=== PATIENT | female | born 1985 | race American Indian/Alaskan Native ===

== ENCOUNTER 2017-11-21 22:36 | Emergency (ER) | payer SELFPAY ==
[2017-11-21 22:45] VITALS: BP 140/90; PULSE 68; RESP 18; TEMP 98.6; O2SAT 99
--- NOTE | 2017-11-21 23:58 | C.PDOC ---
History Of Present Illness 32 year old female presents to the ER with a complaint of left upper tooth pain for the past 4 days. Patient states the pain radiates to her neck and ear. She has been taking tylenol twice a day with no relief. Denies fever or facial swelling. Time Seen by Provider: 11/21/17 22:54 Chief Complaint (Nursing): Dental Pain History Per: Patient History/Exam Limitations: no limitations Onset/Duration Of Symptoms: Days Current Symptoms Are (Timing): Still Present Recent travel outside of the [place]: No Past Medical History Reviewed: Historical Data, Nursing Documentation, Vital Signs Vital Signs: Last Vital Signs Temp 98.6 F 11/21/17 22:41 Pulse 68 11/21/17 22:41 Resp 18 11/21/17 22:41 BP 140/90 11/21/17 22:41 Pulse Ox 99 11/22/17 03:24 Family History: States: No Known Family Hx - Social History Hx Alcohol Use: Yes Hx Substance Use: No - Immunization History Hx Tetanus Toxoid Vaccination: No Hx Influenza Vaccination: Yes Hx Pneumococcal Vaccination: No Review Of Systems Constitutional: Negative for: Fever, Chills ENT: Positive for: Mouth Pain (Radiating to neck and ear). Negative for: Ear Pain, Throat Pain Cardiovascular: Negative for: Chest Pain Respiratory: Negative for: Cough Skin: Negative for: Rash Neurological: Negative for: Weakness, Numbness Physical Exam - Physical Exam Appears: Non-toxic Skin: Normal Color, Warm, Dry Head: Atraumatic, Normacephalic, No Swelling (Facial) Eye(s): bilateral: Normal Inspection Ear(s): Bilateral: Normal Nose: Normal Oral Mucosa: Moist Teeth: Other (Left upper rear most molar carious and tender to palpation) Gingiva: Normal Appearing, No Swelling, No Tender Throat: Normal, No Erythema Neck: Normal, Supple ED Course And Treatment O2 Sat by Pulse Oximetry: 99 (Room air) Pulse Ox Interpretation: Normal Medical Decision Making Medical Decision Making: pt with decreased pain after toradol. d/c home. pt has dental appt for monday Disposition Counseled Patient/Family Regarding: Diagnosis, Need For Followup, Rx Given - Disposition Referrals: Non [facility] Provider, [Primary Care Provider] - Disposition: HOME/ ROUTINE Disposition Time: 23:56 Condition: IMPROVED Additional Instructions: Please take medication as prescribed. Cold compresses to face several times a day. Follow up with your dentist on Monday as scheduled. Prescriptions: Acetaminophen [Tylenol 325mg tab] 650 mg PO Q4 #50 tab Ibuprofen [Motrin] 600 mg PO TID #30 tab Instructions: Tooth Decay, Adult (DC) Forms: [facility] (Irish), General Discharge Instructions - Clinical Impression Clinical Impression: Dental caries, Pain due to dental caries - Scribe Statement The provider has reviewed the documentation as recorded by the Scribigor Valdes All medical record entries made by the Nellieibigor were at my direction and personally dictated by me. I have reviewed the chart and agree that the record accurately reflects my personal performance of the history, physical exam, medical decision making, and the department course for this patient. I have also personally directed, reviewed, and agree with the discharge instructions and disposition.
== END 2017-11-22 00:02 | disposition home or self-care (01) ==
LOC: C.ER 22:36 → SUPCPDRO 22:36 → C.ER 11-22 00:02
DX: K02.9 Dental caries, unspecified (principal)
CPT/HCPCS: 96372; 99283; J1885